=== PATIENT | female | born 1980 | race Caucasian/White ===

== ENCOUNTER 2021-03-02 14:44 | Emergency (ER) | payer OTHER ==
[~2021-03-02] VITALS: Ht 170.2 cm; Wt 101.0 kg
[2021-03-02] MEDS ORDERED: METOCLOPRAMIDE 10 MG TABLET PO ONE (16:15)
[2021-03-02] MEDS ORDERED: diazePAM 2 MG TABLET. PO ONE (16:15)
--- NOTE | 2021-03-02 16:20 | PHYS DOC ---
Past History Past Medical History: No Pertinent History (AMARILIS GAUTAM APRN) Past Surgical History: Tubal ligation (AMARILIS GAUTAM APRN) Smoking: Cigarettes Alcohol Use: None Drug Use: Methamphetamine (AMARILIS GAUTAM APRN) Adult General Chief Complaint Chief Complaint: DIZZY/LIGHT HEADED HPI HPI Patient is a 41-year-old female presents emergency department complaining of waking up with dizziness 2 days ago. Patient states she called her primary care physician Dr. Tello who recommended she take meclizine for the dizziness. Patient states she took 4 tablets yesterday without relief but was able to go to sleep, patient states she took 4 tablets today without relief and called Dr. Tello who recommended she come to the emergency department for evaluation. Patient states she was very nauseated yesterday during her dizzy episodes however denies nausea today. Patient states that when she is sitting still she does not have any dizziness, however when she moves her head to the left or right or changes positions she becomes very dizzy and describes that the room is spinning around. Patient denies recent fever or chills, however states she did notice a mild throat discomfort that started yesterday as well. Patient denies cough or nasal congestion. Patient denies chest pain or chest congestion. Patient denies any recent illnesses or being on any recent antibiotic medications. Patient states she has not lost consciousness. Patient denies urinary tract infection type signs and symptoms. Denies seeing blood in her s tool or urine. Patient reports her last menstrual cycle ended 2 days ago with normal duration of flow, reports taking Valtrex as needed for cold sores. Patient denies allergies to medications. Patient reports she had her second mode during a COVID-19 vaccine on February 05 and has not had any problems that she is aware of. (AMARILIS GAUTAM APRN) Review of Systems Review of Systems 14 body systems of review of systems have been reviewed. See HPI for pertinent positives and negative responses, otherwise all other systems are negative, nonpertinent or noncontributory. (AMARILIS GAUTAM APRN) Current Medications Current Medications Current Medications Medications (Trade) Dose Ordered Sig/Jim Start Time Stop Time Status Last Admin Dose Admin Diazepam (Valium) 2 mg 1X ONCE 03/02/21 16:15 03/02/21 16:16 03/02/21 15:47 2 MG Metoclopramide HCl (Reglan) 10 mg 1X ONCE 03/02/21 16:15 03/02/21 16:16 03/02/21 15:47 10 MG (AMARILIS GAUTAM APRN) Allergies Allergies Allergies Coded Allergies Type Severity Reaction Last Updated Verified No Known Drug Allergies 10/03/13 No (AMARILIS GAUTAM APRN) Physical Exam Physical Exam Constitutional: Well developed, well nourished, no acute distress, non-toxic appearance. 41-year-old female no apparent distress. HENT: Normocephalic, atraumatic, bilateral external ears normal, oropharynx moist, no oral exudates, nose normal. Oropharynx moist, pink, no deep tissue infectious process appreciated, bilateral tympanic membranes show otitis media with effusion with air-fluid levels, no tympanic bulging, the external auditory canals are not erythematous or edematous, there is no drainage. The patient does have bilateral submental lymphadenopathy, no other lymphadenopathy of the head or neck appreciated. There is no meningeal signs, no drooling, the patient is speaking in normal voice tones, there is no laryngeal edema appreciated. Eyes: PERRLA, EOMI, conjunctiva normal, no discharge. Satisfactory 6 cardinal eye movements, patient had mild horizontal nystagmus after eye movement test. Neck: Normal range of motion, no tenderness, supple, no stridor. No meningismus signs, no nuchal rigidity. Cardiovascular:Heart rate regular rhythm, no murmur Lungs & Thorax: Bilateral breath sounds clear to auscultation no adventitious lung sounds appreciated. Abdomen: Bowel sounds normal, soft, no tenderness, no masses, no pulsatile masses. Skin: Warm, dry, no erythema, no rash. Back: No tenderness, no CVA tenderness. Extremities: No tenderness, no cyanosis, no clubbing, ROM intact, no edema. Neurologic: Alert and oriented X 3, normal motor function, normal sensory function, no focal deficits noted. Kia-Hallpike test positive with horizontal nystagmus appreciated. Patient did not become nauseated during test. Psychologic: Affect normal, judgement normal, mood normal. (AMARILIS GAUTAM APRN) Current Patient Data Vital Signs Vital Signs Date Time Temp Pulse Resp B/P (MAP) Pulse Ox O2 Delivery O2 Flow Rate FiO2 03/02/21 14:46 98.9 88 16 129/80 (96) 98 Room Air (AMARILIS GAUTAM APRN) EKG EKG EKG performed at 1513 by house respiratory therapy staff shows a normal sinus rhythm with leftward axis deviation otherwise no other ectopy, FL interval 0.158, QT 0.432, no acute STEMI, no ACS, no acute ischemia appreciated, EKG interpreted by ED attending physician Dr. Reynoso. (AMARILSI GAUTAM APRN) Radiology/Procedures Radiology/Procedures [] (AMARILIS GAUTAM APRN) Heart Score C/O Chest Pain: No Risk Factors: Risk Factors: DM, Current or recent (<one month) smoker, HTN, HLP, family history of CAD, obesity. Risk Scores: Risk Factors: DM, Current or recent (<one month) smoker, HTN, HLP, family history of CAD, obesity. (AMARILIS GAUTAM APRN) Course & Med Decision Making Course & Med Decision Making Pertinent Labs and Imaging studies reviewed. (See chart for details) 41-year-old female, vital signs reviewed, presents emergency department with chief complaint of dizziness for the past 2 days. Physical examination consistent with peripheral vertigo, patient does have OME with bilateral submental lymphadenopathy. The patient does not have neck pain, fever, nuchal rigidity, or meningismus signs, meningitis is unlikely. The patient is afebrile. The patient is not complaining of any nausea at this time, will give 2 mg p.o. Valium with 10 mg Reglan to treat vertigo symptoms. Physical examination is not consistent with a central vertigo, CT imaging is not indicated. Related to patient's complaint of dizziness, an EKG was performed to rule out cardiac component. After period of time reexamination of patient found patient in no apparent distress, she is nontoxic in appearance, states that her dizziness has resolved. Discussed with patient will order Valium medication to be taken at home twice a day as needed for dizziness symptoms along with 10 mg Reglan to be taken every 6 hours for dizziness symptoms. Discussed with patient taking [id number] Sudafed and/or Benadryl for upper respiratory infection otitis media with effusion, may take Tylenol and or Motrin for aches or pains. Patient gave verbal understanding discharge home instructions, strict follow-up with primary care if symptoms not improving, return to ER precautions or concerns, patient was discharged home without incident. (AMARILIS GAUTAM APRN) Dragon Disclaimer Dragon Disclaimer This electronic medical record was generated, in whole or in part, using a voice recognition dictation system. (AMARILIS GAUTAM APRN) Attending Co-Sign The patient was seen and interviewed as well as examined at the bedside. The chart was reviewed. The case was discussed. Agree with the plan of care. (NATACHA REYNOSO DO) Departure Departure: Impression: Primary Impression: Acute otitis media with effusion of both ears Additional Impressions: Submental lymphadenopathy Vertigo Disposition: HOME / SELF CARE / HOMELESS Condition: GOOD Referrals: RICKEY TELLO MD (PCP) Patient Instructions: Otitis Media with Effusion, Vertigo Additional Instructions: You are seen today in the emergency department for dizziness, your physical examination revealed a bilateral ear infection that is most likely from a viral source, I will prescribe you Sudafed, you may also use another type of antihistamine such as Benadryl if the Sudafed does not seem to be helping, you may also try 10 mg Zyrtec that you can obtain [id number] as well, I am also prescribing you Valium for your dizziness that you will take every 12 hours as needed for dizziness, I will also prescribe you Reglan which is an antinausea medication, please take with the Valium if needed even though you may not be nauseated as the combination of these 2 medications seem to help with your dizziness today. Please follow-up with your primary care physician for reevaluation for ongoing symptoms, please return to the emergency department for worsening symptoms or other concerns. EMERGENCY DEPARTMENT GENERAL DISCHARGE INSTRUCTIONS Thank you for coming to [facility] (ED) today and trusting us with you care. We trust that you had a positivie experience in our Emergency Department. If you wish to speak to the department management, you may call the director at [phone]. YOUR FOLLOW UP INSTRUCTIONS ARE FOLLOWS: 1. Do you have a private Doctor? If you do not have a private doctor, please ask for a resource list of physicians or clinics that may be able to assist you with f ollow up care. 2. The Emergency Physician has interpreted your x-rays. The X-Ray specialist will also review them. If there is a change in the findings, you will be notified in 48 hours when at all possible. 3. A lab test or culture has been done, your results will be reviewed and you will be notified if you need a change in treatment. ADDITIONAL INSTRUCTIONS AND INFORMATION: 1. Your care today has been supervised by a physician who is specially trained in emergency care. Many problems require more than one evaluation for a complete diagnosis and treatment. We recommend that you schedule your follow up appointment as recommended to ensure complete treatment of you illness or injury. If you are unable to obtain follow up care and continue to have a problem, or if your condition worsens, we recommend that you return to the ED. 2. We are not able to safely determine your condition over the phone nor are we able to give sound medical advice over the phone. For these safety reasons, if you call for medical advice we will ask you to come to the ED for further evaluation. 3. If you have any questions regarding these discharge instructions please call the ED at [phone]. SAFETY INFORMATION: In the interest of safety, wellness, and injury prevention; we encourage you to wear your sealbelt, if you smoke; quite smoking, and we encourage family to use a protect elaine helmet for bicycling and other sporting events that present an increased risk for head injury. IF YOUR SYMPTOMS WORSEN OR NEW SYMPTOMS DEVELOP, OR YOU HAVE CONCERNS ABOUT YOUR CONDITION; OR IF YOUR CONDITION WORSENS WHILE YOU ARE WAITING FOR YOUR FOLLOW UP APPOINTMENT; EITHER CONTACT YOUR PRIMARY CARE DOCTOR, THE PHYSICIAN WHOSE NAME AND NUMBER YOU WERE GIVEN, OR RETURN TO THE ED IMMEDIATELY. Scripts Metoclopramide Hcl (REGLAN) 10 Mg Tablet 10 MG PO QID for DIZZYNESS WITH NAUSEA, #20 TAB 0 Refills Prov: AMARILIS GAUTAM APRN 03/02/21 Diazepam (VALIUM) 2 Mg Tablet 2 MG PO BID for VERTIGO, #10 TAB 0 Refills Prov: AMARILIS GAUTAM APRN 03/02/21 [Sudafed] 30MG No Conflict Check 60 MG PO Q4-6HRS PRN for CONGESTION, #30 TAB 0 Refills Prov: AMARILIS GAUTAM APRN 03/02/21 Problem Qualifiers AMARILIS GAUTAM APRN Mar 02, 2021 16:20 NATACHA REYNOSO DO Mar 05, 2021 03:52
[2021-03-02 16:23] VITALS: BP 122/79
--- NOTE | 2021-03-02 16:42 | EKG ---
[address] [address] Test Date: 2021-03-02 Test Time: 15:13:52 Pat Name: SCOOTER MARION Department: Room: Gender: F Heart Coordinator: [place] : 1980 Requested By: AMARILIS GAUTAM Order Number: [id number] Reading MD: Measurements Intervals [place] Rate: 79 P: 27 PA: 158 QRS: -17 QRSD: 86 T: 44 QT: 376 QTc: 432 Interpretive Statements SINUS RHYTHM LEFTWARD AXIS OTHERWISE NORMAL ECG RI6.02 No previous ECG available for comparison
[2021-03-02] MEDS ORDERED: SUDAFED PO (16:44)
[2021-03-02] MEDS ORDERED: DIAZ2TAB PO (16:44)
[2021-03-02] MEDS ORDERED: METO10TA81 PO (16:44)
== END 2021-03-02 17:05 | disposition home or self-care (01) ==
LOC: ER 14:44
DX: R42 Dizziness and giddiness (principal); H66.93 Otitis media, unspecified, bilateral; R59.1 Generalized enlarged lymph nodes; F17.210 Nicotine dependence, cigarettes, uncomplicated; F15.10 Other stimulant abuse, uncomplicated; Z98.51 Tubal ligation status
CPT/HCPCS: 93005; 99283